=== PATIENT | male | born 1955 | race Caucasian/White ===

== ENCOUNTER 2018-07-22 18:24 | Observation (INO) | payer MEDICARE, OTHER ==
[~2018-07-22] VITALS: Ht 180.3 cm; Wt 72.6 kg
[2018-07-22 19:09] LABS: Hematocrit 35.2 % (37.0-53.0); Hemoglobin 11.2 g/dL (13.5-17.5); Mean Corpuscular HGB 31.3 pg (26.0-34.0); Mean Corpuscular HGB Conc 31.8 g/dL (31.5-36.5); Mean Corpuscular Volume 98 fL (80-100); NRBC ABSOLUTE 0.04 K/mm3 (0.00-0.02); NRBC Auto 0.3 /100 WBC (0.0-0.2); RDW Coefficient Variation 22.2 % (11.7-14.2); RDW Standard Deviation 72.6 fL (35.1-46.3); Red Blood Cell Count 3.58 M/mm3 (4.30-5.90); White Blood Cell Count 12.25 K/mm3 (4.00-11.30)
[2018-07-22 19:23] LABS: Mean Platelet Volume 13.7 fL (9.1-12.4); Platelet Count 48 K/mm3 (150-400)
[2018-07-22 19:31] LABS: Alanine Aminotransfer (ALT/SGP 128 U/L (12-78); Albumin, Blood 3.4 g/dL (3.4-5.0); Alk Phos 166 U/L (50-136); Anion Gap 11 mmol/L (6-16); Aspartate Aminotrans (AST/SGOT 43 U/L (12-37); Bilirubin, Total 2.3 mg/dL (0.1-1.0); Blood Urea Nitrogen 19 mg/dL (8-24); Bun/Creatinine Ratio 17.8 (12.0-20.0); CO2, Blood 27 mmol/L (21-32); Calcium, Blood 9.8 mg/dL (8.5-10.1); Chloride, Blood 102 mmol/L (98-108); Creatinine, Blood 1.07 mg/dL (0.60-1.20); Globulin, Blood 3.3 g/dL (2.2-4.0); Glomerular Filtration Rate >60 (60-); Glucose, Blood 170 mg/dL (70-99); Potassium, Blood 3.9 mmol/L (3.5-5.5); Sodium, Blood 140 mmol/L (136-145); Total Protein, Blood 6.7 g/dL (6.4-8.2)
[2018-07-22 19:42] LABS: BASOPHILS ABSOLUTE MAN 0.36 K/mm3 (0.00-0.23); BASOPHILS PERCENT MAN 3 % (0-2); EOSINOPHILS PERCENT MAN 0 % (0-6); LYMPHOCYTES ABSOLUTE MAN 0.61 K/mm3 (0.84-5.20); LYMPHOCYTES PERCENT MAN 5 % (21-46); METAMYELOCYTE ABSOLUTE MAN 0.49 K/mm3 (0.00-0.00); METAMYELOCYTE PERCENT MAN 4 % (0-0); MONOCYTES ABSOLUTE MAN 1.47 K/mm3 (0.16-1.47); MONOCYTES PERCENT MAN 12 % (4-13); NEUTROPHILS ABSOLUTE MAN 9.31 K/mm3 (1.96-9.15); SEG NEUTROPHILS PERCENT MAN 76 % (41-73); TOTAL CELLS COUNTED 100
[2018-07-22 20:18] LABS: U Amphetamine Screen Not Detected; U Barbituate Screen Not Detected; U Benzodiazapine Screen Not Detected; U Buprenorphine Screen Not Detected; U Cannabinoids Screen Not Detected; U Cocaine Screen Not Detected; U Methadone Screen Not Detected; U Methamphetamine Screen Not Detected; U Opiates Screen Not Detected; U Oxycodone Screen Not Detected; U Phencyclidine Screen Not Detected; U Propoxyphene Screen Not Detected
[2018-07-22] MEDS ORDERED: BUME2 (20:27)
[2018-07-22] MEDS ORDERED: METO100 PO (20:28)
[2018-07-23] MEDS ORDERED: ACYC800 PO (01:45)
[2018-07-23] MEDS ORDERED: VITAMIN D5000 UNIT PO (01:47)
[2018-07-23] MEDS ORDERED: DILT180 PO (01:48)
[2018-07-23] MEDS ORDERED: LEVFLO500 PO (01:49)
[2018-07-23] MEDS ORDERED: MAGOXI400 PO (01:49)
[2018-07-23] MEDS ORDERED: METO50 PO (01:50)
[2018-07-23] MEDS ORDERED: GAVILAX17 GM PO (01:51)
[2018-07-23] MEDS ORDERED: POTCHL20ER PO (01:52)
[2018-07-23] MEDS ORDERED: Pravachol40 MG PO (01:53)
[2018-07-23] MEDS ORDERED: PROC5 PO (01:55)
--- NOTE | 2018-07-23 04:14 | NUR ---
SHIFT SUMMARY: PT IS ALERT AND ORIENTED. PT IS CALM AND COOPERATIVE WITH CARE. PT CALLS APPROPRIATELY. PT IS A STANDBY ASSIST. PT DENIES PAIN, NAUSEA, VOMITING, AND SOB. PT SLEPT MUCH OF THE NIGHT WHEN NOT DISTURBED. NO ACUTE CHANGES OR COMPLICATIONS THIS SHIFT. BED IN LOW POSITION, CALL LIGHT WITHIN REACH. WILL REPORT TO DAY NURSE.
--- NOTE | 2018-07-23 15:16 | NUR ---
discharge THIS AM DR RASHID IN TO SEE/ASSESS PT, STATE PT SEEMS LUCID, ANSW MOST QUESTION APPROP, AUGUST D/C FROM HOSP AFTER PT/OT EVAL. PT'S POA KELLI ARRIVE FROM [place] FOR TRANSPORTATION HOME. PT/OT COMPLETE EVAL, AMBULATE IN HALLS. BP SOMEWHAT LOW 95/52 HOWEVER ASYMPTOMATIC. HX AFIB ON TELE HR 80'S. POA STATE CONCERNS R/T GETTING PT HOME [facility] FOR F/U WITH PCP IN AM. DR RASHID PROVIDE D/C HOME ORDERS, REVIEWED W PT/POA. ENCOURAGED THEM TO GO TO URGENT CARE IN [place] DIRECTED BY PT'S PCP IF THEY HAVE ANY PROBLEMS ON WAY HOME. W/C [facility] PROVIDED. THEY STATE APPRECIATION. PT HAD PICC LUE ON ARRIVAL, PATENT @ TIME OF D/C.
== END 2018-07-23 15:12 | disposition home or self-care (01) ==
LOC: ER 18:24 → MEDS 18:25
PROVIDERS: Emergency Medicine; ADMIT Internal Medicine
DX: G92 Toxic encephalopathy (principal); T68.XXXA Hypothermia, initial encounter; I48.91 Unspecified atrial fibrillation; C92.00 Acute myeloblastic leukemia, not having achieved remission; D69.6 Thrombocytopenia, unspecified; I50.20 Unspecified systolic (congestive) heart failure; Z87.891 Personal history of nicotine dependence
CPT/HCPCS: 70450; 80053; 82947; 85025; 93005; 93010; 96360; 96361; 97162; 97166; 97530; 99285-25; G0378; J7030